=== PATIENT | female | born 1965 | race Caucasian/White ===

== ENCOUNTER 2018-04-21 08:41 | Emergency (ER) | payer BC ==
[~2018-04-21] VITALS: Ht 170.2 cm; Wt 109.8 kg
[~2018-04-21 08:41] MED LIST: ANTIVERT25 MG PO; BIOTIN10000 MC1 PO; CYMBALTA30 MG PO; EFFEXOR75 MG PO; HYDROCODON-ACE1 EAC7 PO; Lopressor PO; MAGNESIUM250 MG PO; MAXALT10 MG PO; METOPROLOL TAR100 MG PO; MULTIPLE VITAM1 EACH PO; VITAMIN D5000 UNI1 PO; Vicodin,Lortab 5/500 PO; ZANAFLEX4 M1 PO; ZYRTEC10 M3 PO
[2018-04-21 08:58] LABS: HEMOGLOBIN 15.1 G/DL (11.9-15.5); MCHC 34.3 G/DL (30.0-36.0); MCV 90.3 FL (83-99); PLATELET COUNT 340 K/uL (156-360); RBC DIS.WIDTH-CV 13.6 % (11.8-14.6); RBC DIS.WIDTH-SD 44.8 % (39-53); RED BLOOD COUNT 4.87 M/uL (3.80-5.20); WHITE BLOOD COUNT 9.6 K/uL (4.1-10.2)
[2018-04-21 09:06] LABS: PTT 32.6 SEC (25-37)
[2018-04-21 09:08] LABS: CHLORIDE 104 mEq/L (99-109); POTASSIUM 4.2 mEq/L (3.7-5.4); SODIUM 142 mEq/L (136-147)
[2018-04-21 09:10] LABS: GLUCOSE 95 mg/dL (70-99)
[2018-04-21 09:14] LABS: CREATININE 0.8 mg/dL (0.6-1.3); GFR ESTIMATE (CALCULATED) > 59 mL/min/
[2018-04-21 09:15] LABS: UREA NITROGEN (BUN) 10 mg/dL (9-23)
[2018-04-21 10:30] VITALS: BP 130/99
== END 2018-04-21 11:06 | disposition home or self-care (01) ==
LOC: EME 08:41
PROVIDERS: Emergency Medicine
DX: R29.810 Facial weakness (principal); J32.0 Chronic maxillary sinusitis; K21.9 Gastro-esophageal reflux disease without esophagitis; F32.9 Major depressive disorder, single episode, unspecified; F17.200 Nicotine dependence, unspecified, uncomplicated; Z88.5 Allergy status to narcotic agent
CPT/HCPCS: 70450; 71046; 80048; 85027; 85610; 85730; 93005; 99281; 99284

== ENCOUNTER 2018-05-30 21:30 | Inpatient (IN) | payer BC ==
[~2018-05-30] VITALS: Ht 170.2 cm; Wt 110.3 kg
[~2018-05-30 21:30] MED LIST changes: -MAGNESIUM250 MG PO; +MAGNESIUM400 M1 PO
[2018-05-30 22:08] LABS: BASOPHIL (%) 0.7 % (0-1); BASOPHIL COUNT 0.1 K/uL (0-0.1); EOSINOPHIL (%) 1.7 % (0-5); EOSINOPHIL COUNT 0.3 K/uL (0-0.3); HEMATOCRIT 41.2 % (36.0-46.0); HEMOGLOBIN 14.3 G/DL (11.9-15.5); IMMATURE GRANULOCYTE (%) 0.5 % (0.0-0.7); LYMPHOCYTE (%) 22.4 % (15-42); LYMPHOCYTE COUNT 3.4 K/uL (1.0-2.8); MCH 30.4 PG (29.0-34.0); MCHC 34.7 G/DL (30.0-36.0); MCV 87.7 FL (83-99); MONOCYTE (%) 6.1 % (3-12); MONOCYTE COUNT 0.9 K/uL (0-0.8); NEUTROPHIL (%) 68.6 % (45-76); NEUTROPHIL COUNT 10.4 K/uL (1.8-6.4); PLATELET COUNT 332 K/uL (156-360); RBC DIS.WIDTH-CV 14.3 % (11.8-14.6); RBC DIS.WIDTH-SD 46.3 % (39-53); WHITE BLOOD COUNT 15.1 K/uL (4.1-10.2)
[2018-05-30 22:20] LABS: AMYLASE 25 IU/L (1-118); CHLORIDE 102 mEq/L (99-109); SODIUM 138 mEq/L (136-147)
[2018-05-30 22:21] LABS: GLUCOSE 116 mg/dL (70-99)
[2018-05-30 22:24] LABS: SERUM ETHYL ALCOHOL < 10 mg/dL
[2018-05-30 22:25] LABS: CREATININE 0.8 mg/dL (0.6-1.3); GFR ESTIMATE (CALCULATED) > 59 mL/min/
[2018-05-30 22:26] LABS: UREA NITROGEN (BUN) 9 mg/dL (9-23)
[2018-05-30 22:28] LABS: LIPASE 18 U/L (1.0-51.0)
[2018-05-30 22:29] LABS: TROP-I INTERPRETATION NEGATIVE; TROPONIN-I < 0.01 ng/mL (0.0-0.30)
[2018-05-30 22:33] LABS: INTER. NORMALIZED RATIO 0.9
[2018-05-30 22:35] LABS: QUANTITATIVE HCG < 4.0 MIU/ML
[2018-05-30 22:36] LABS: PTT 23.9 SEC (25-37)
[2018-05-30 22:52] LABS: APPEARANCE CLEAR ((CLEAR)); BILIRUBIN NEGATIVE; BLOOD NEGATIVE; COLOR STRAW ((YELLOW)); GLUCOSE (STRIP) NEGATIVE; KETONES NEGATIVE; LEUKOCYTES SMALL; NITRITE NEGATIVE; PROTEIN (STRIP) NEGATIVE; SPECIFIC GRAVITY 1.016 (1.000-1.030); UROBILINOGEN 0.2 MG/DL (0.2-1.0)
[2018-05-30 22:55] LABS: BACTERIA RARE /HPF; EPITHELIAL CELLS RARE /HPF; HYALINE CASTS 0-5 /LPF; MUCUS TRACE /LPF; RED BLOOD CELLS 0-5 /HPF (0-5); UCUL ADDED? YES
[2018-05-30 23:17] LABS: AMPHETAMINE NEGATIVE (500 ng/mL); BARBITURATES NEGATIVE (200 ng/mL); BENZODIAZEPINES NEGATIVE (150 ng/mL); BUPRENORPHINE NEGATIVE (10 ng/mL); COCAINE NEGATIVE (150 ng/mL); METHADONE NEGATIVE (200 ng/mL); METHAMPHETAMINE NEGATIVE (500 ng/mL); OPIATES (MORPHINE) NEGATIVE (100 ng/mL); OXYCODONE NEGATIVE (100 ng/mL); PHENCYCLIDINE NEGATIVE (25 ng/mL); PROPOXYPHENE NEGATIVE (300 ng/mL); THC CANNABINOIDS NEGATIVE (50 ng/mL); TRICYCLIC ANTIDEPRESSANTS NEGATIVE (300 ng/mL)
[2018-05-31] MEDS ORDERED: BUSPAR10 MG PO (00:23)
[2018-05-31] MEDS ORDERED: GABAPENTIN300 MG PO (00:26)
[2018-05-31] MEDS ORDERED: HYDROCHLOROTHIA25 MG PO (00:43)
[2018-05-31] MEDS ORDERED: VENLAFAXINE HC150 M1 PO (00:45)
[2018-05-31 05:13] VITALS: BP 141/80
[2018-05-31 06:08] LABS: HEMATOCRIT 41.1 % (36.0-46.0); HEMOGLOBIN 13.7 G/DL (11.9-15.5); MCH 29.8 PG (29.0-34.0); MCHC 33.3 G/DL (30.0-36.0); MCV 89.3 FL (83-99); PLATELET COUNT 317 K/uL (156-360); RBC DIS.WIDTH-CV 14.6 % (11.8-14.6); RBC DIS.WIDTH-SD 47.3 % (39-53); WHITE BLOOD COUNT 12.3 K/uL (4.1-10.2)
[2018-05-31 06:15] LABS: TROP-I INTERPRETATION NEGATIVE; TROPONIN-I < 0.01 ng/mL (0.0-0.30)
[2018-05-31 06:38] LABS: HDL CHOLESTEROL 56 MG/DL (Desirable>=50); LDL CHOLESTEROL 87 mg/dL (Desirable<100); NON-HDL CHOLESTEROL 109 mg/dL (Desirable<160); TOTAL CHOLESTEROL 165 mg/dL (Desirable<200); TRIGLYCERIDES 110 MG/DL (Normal: <150)
[2018-05-31 07:30] VITALS: BP 170/96
[2018-05-31 08:03] LABS: THYROTROPIN (TSH) 1.5 MIU/L (0.4-5.5)
[2018-05-31 09:09] LABS: FOLIC ACID (FOLATE) > 22.0 NG/ML (5.0-22.0)
[2018-05-31 11:24] LABS: HEMOGLOBIN A1c (GLYCOHEMOGLOB) 5.2 % (Below 5.7)
== END 2018-05-31 09:40 | disposition left against medical advice (07) | DRG 66 ==
LOC: EME → EDBD 21:30 → EME 21:30 → EDOF 05-31 02:31 → ENRESERV 05-31 02:33 → 5SOUTH 05-31 05:01
PROVIDERS: Emergency Medicine; Hospitalist
DX: I63.9 Cerebral infarction, unspecified (principal); I10 Essential (primary) hypertension; K58.9 Irritable bowel syndrome, unspecified; M79.7 Fibromyalgia; E28.2 Polycystic ovarian syndrome; E55.9 Vitamin D deficiency, unspecified; E66.01 Morbid (severe) obesity due to excess calories; E87.6 Hypokalemia; F17.200 Nicotine dependence, unspecified, uncomplicated; K21.9 Gastro-esophageal reflux disease without esophagitis; K90.0 Celiac disease; R29.704 NIHSS score 4; Z90.721 Acquired absence of ovaries, unilateral; K86.81 Exocrine pancreatic insufficiency
CPT/HCPCS: 70450; 70496; 70498; 80047; 80048; 80048 91; 80061; 80306 90; 81003; 82150; 82607; 82746; 83036; 83690; 84439; 84443; 84484; 84702; 85025; 85025 91; 85027; 85610; 85730; 86850; 86900; 86901; 87086; 93005; 99281; 99285; G0480; J1650; J7030